=== PATIENT | male | born 1960 | race Caucasian/White ===

== ENCOUNTER 2022-12-09 17:16 | Emergency (ER) | payer OTHER ==
[~2022-12-09] VITALS: Ht 182.9 cm; Wt 94.3 kg
[2022-12-09] MEDS ORDERED: LORAZEPAM 0.5 MG TABLET PO ONE (18:00)
[2022-12-09] MEDS ORDERED: LORAZEPAM 0.5 MG TABLET ONE (18:04)
[2022-12-09 19:29] LABS: BASOPHILS # (AUTO) 0.1 K/uL (0.0-0.2); BASOPHILS % (AUTO) 1.7 % (0.0-2.0); EOSINOPHILS # (AUTO) 0.6 K/uL (0.0-0.7); EOSINOPHILS % (AUTO) 7.1 % (0.0-6.0); HEMATOCRIT 40 % (39-51); HEMOGLOBIN 13.5 g/dL (13.5-17.5); LYMPHOCYTES # (AUTO) 1.2 K/uL (0.8-4.8); MEAN CORPUSCULAR HEMOGLOBIN 30 PG (26.0-33.0); MEAN CORPUSCULAR HGB CONC 34 g/dl (31.0-36.0); MEAN CORPUSCULAR VOLUME 89 fL (80-96); MONOCYTES # (AUTO) 0.6 K/uL (0.1-1.30); MONOCYTES % (AUTO) 7.2 % (2.0-12.0); NEUTROPHILS # (AUTO) 6.3 K/uL (1.8-8.9); PLATELET COUNT (AUTO) 234 K/uL (150-450); RED CELL DISTRIBUTION WIDTH 13.7 % (11.5-15.0); WHITE BLOOD COUNT (AUTO) 8.8 K/uL (4.3-11.0)
[2022-12-09 19:36] LABS: CALCIUM, SERUM 8.3 mg/dL (8.5-10.1); POTASSIUM 3.8 mmol/L (3.5-5.1)
[2022-12-09] MEDS ORDERED: IOHEXOL-350 100 ML VIAL IV ONE (19:38)
[2022-12-09] MEDS ORDERED: IV NS 0.9% 250 ML IV ONE (19:38)
[2022-12-09] MEDS ORDERED: CT SWABBABLE VALVE TRANS SET 1 EA INFUS.SET MC ONE (19:38)
[2022-12-09] MEDS ORDERED: IBUP-1955 PO (20:58)
[2022-12-09 22:19] VITALS: BP 161/89; TEMP 98.1; O2SAT 100
== END 2022-12-09 21:30 | disposition home or self-care (01) ==
LOC: ER 17:26
DX: S20.219A Contusion of unspecified front wall of thorax, initial encounter (principal); I10 Essential (primary) hypertension; Z79.899 Other long term (current) drug therapy; V89.2XXA Person injured in unspecified motor-vehicle accident, traffic, initial encounter; Y93.89 Activity, other specified; Y92.89 Other specified places as the place of occurrence of the external cause; Y99.8 Other external cause status
CPT/HCPCS: 99285; 71260; 71045; 93005; 85025; 80048; 36415; 84484; J7050; Q9967